=== PATIENT | female | born 1990 | race Caucasian/White ===

== ENCOUNTER 2022-05-20 03:09 | Emergency (ER) | payer MEDICAID ==
[~2022-05-20] VITALS: Ht 175.3 cm; Wt 73.0 kg
[2022-05-20] MEDS ORDERED: SODIUM CHLORIDE 0.9% 1,000 ML IV ONE (04:15)
[2022-05-20] MEDS ORDERED: ONDANSETRON HCL 4MG/2ML INJ IV ONE (04:15)
[2022-05-20] MEDS ORDERED: MORPHINE SULFATE 4 MG/ML CPJ (NOT FOR IM USE) IV ONE (04:15)
[2022-05-20 04:40] LABS: BASOPHILS % 0.3 % (0.0-2.0); EOSINOPHILS % 2.1 % (0.0-5.0); HEMATOCRIT. 35.7 % (36.0-48.0); LYMPHOCYTES % 17.8 % (20.0-50.0); MEAN CORPUSCULAR HEMOGLOBIN 30.4 pg (28.0-32.0); MEAN CORPUSCULAR VOLUME 90.1 fL (81.0-99.0); MEAN PLATELET VOLUME 8.8 fl (7.4-10.4); MONOCYTES % 4.8 % (2.0-8.0); PLATELET 287 x1000/uL (130-400); RED BLOOD CELL COUNT 3.96 mill/uL (4.2-5.4); RED CELL DISTRIBUTION WIDTH 14.7 % (11.6-14.6)
[2022-05-20 04:48] LABS: CHLORIDE 108 mEq/L (98-107)
[2022-05-20 04:58] LABS: B-HCG QUANTITATIVE 623 mIU/mL (<3)
[2022-05-20 05:02] VITALS: BP 127/67
[2022-05-20] MEDS ORDERED: KETOROLAC 30MG/ML VIAL IV ONE (06:15)
[2022-05-20] MEDS ORDERED: ACETAMINOPHEN 325MG TABLET PO ONE (06:15)
[2022-05-20] MEDS ORDERED: MISO200T PO (06:38)
[2022-05-20] MEDS ORDERED: IBUP-2028 MT (06:39)
[2022-05-20] MEDS ORDERED: MISOPROSTOL 200MCG TABLET PO ONE (06:45)
== END 2022-05-20 08:05 | disposition home or self-care (01) ==
LOC: ER 03:20
DX: N93.9 Abnormal uterine and vaginal bleeding, unspecified (principal)
CPT/HCPCS: 36415; 76830; 76856; 80053; 84702; 85025; 86850; 86900; 86901; 96361; 96374; 96375; 99285; J1885; J2270; J2405; J7030; Z7610